=== PATIENT | female | born 1970 | race Hispanic/Latino ===

== ENCOUNTER 2017-11-06 18:24 | Emergency (ER) | payer SELFPAY ==
[~2017-11-06 18:24] MED LIST: LANS30CA53 PO; METO1TAB41 PO
[2017-11-06 18:49] LABS: BILIRUBIN,URINE Negative (NEGATIVE); COLOR,URINE Yellow (YELLOW); GLUCOSE, URINE (UA) Negative (NEGATIVE); KETONES,URINE Negative (NEGATIVE); LEUKOCYTE ESTERASE ,URINE Negative (NEGATIVE); NITRATE,URINE Negative (NEGATIVE); OCCULT BLOOD,URINE Negative (NEGATIVE); PROTEIN,URINE Negative (NEGATIVE); UROBILINOGEN,URINE 0.2 mg/dL (0.2-1.0)
[2017-11-06 18:51] LABS: BASOPHILS % (AUTO) 0.8 % (0.0-5.0); EOSINOPHILS % (AUTO) 5.1 % (0.0-8.0); HEMATOCRIT 37.7 % (36-48); LYMPHOCYTES % (AUTO) 23.3 % (21.0-51.0); MEAN CORPUSCULAR HEMOGLOBIN 31.5 pg (27.0-33.0); MEAN CORPUSCULAR HGB CONC 35.7 g/dL (32.0-36.0); MEAN CORPUSCULAR VOLUME 88.3 fL (79-99); MONOCYTES % (AUTO) 6.6 % (3.0-13.0); NEUTROPHILS % (AUTO) 64.2 % (40.0-77.0); NUCLEATED RED BLOOD CELLS 0.1 % (0.0-0.19); PLATELET COUNT (AUTO) 309 K/uL (130-400); RED BLOOD CELL COUNT(AUTO) 4.27 MIL/uL (4.00-5.50); RED CELL DISTRIBUTION WIDTH 12.4 % (11.0-15.5); WHITE BLOOD COUNT (AUTO) 10.3 K/uL (4.8-10.8)
[2017-11-06 18:53] LABS: APPEARANCE,URINE CLEAR (CLEAR)
[2017-11-06 19:01] LABS: CREATININE 0.9 mg/dL (0.5-1.5); POTASSIUM 3.6 mmol/L (3.5-5.1)
[2017-11-06 19:05] LABS: ALBUMIN 3.4 g/dL (3.5-5.0); BILIRUBIN,TOTAL 0.4 mg/dL (0.2-1.0); TOTAL PROTEIN, SERUM 7.8 g/dL (6.0-8.3)
[2017-11-06] MEDS ORDERED: KETOROLAC TROMETHAMINE 30MG/ML ONE (19:22)
[2017-11-06] MEDS ORDERED: ONDANSETRON HCL MDV 20ML 2 MG/ML VIAL ONE ×2 (19:22→19:23)
[2017-11-06] MEDS ORDERED: SODIUM CHLORIDE 0.9% 1000ML 1,000 ML IV ONE (19:52)
[2017-11-06] MEDS ORDERED: HYDROMORPHONE 1 MG/1 ML AMP ONE (20:49)
== END 2017-11-06 21:47 | disposition home or self-care (01) ==
LOC: EDH 18:24
DX: K80.20 Calculus of gallbladder without cholecystitis without obstruction (principal); R10.31 Right lower quadrant pain; R10.32 Left lower quadrant pain; Z88.1 Allergy status to other antibiotic agents; Z90.710 Acquired absence of both cervix and uterus; Z90.49 Acquired absence of other specified parts of digestive tract
CPT/HCPCS: 36415; 74176; 80053; 81003; 82150; 83690; 84484; 85025; 93005; 96361; 96374; 96375; 99285; J1170; J1885; J7030

== ENCOUNTER 2022-04-09 18:56 | Inpatient (IN) | payer OTHER ==
[~2022-04-09] VITALS: Ht 160 cm; Wt 66.3 kg
[2022-04-09 19:41] LABS: APPEARANCE,URINE CLEAR (CLEAR); BASOPHILS % (AUTO) 0.3 % (0.0-5.0); BILIRUBIN,URINE NEGATIVE (NEGATIVE); COLOR,URINE YELLOW (YELLOW); GLUCOSE, URINE (UA) 100 mg/dL (NEGATIVE); HEMATOCRIT 38.5 % (36-48); KETONES,URINE NEGATIVE (NEGATIVE); LEUKOCYTE ESTERASE ,URINE NEGATIVE (NEGATIVE); LYMPHOCYTES % (AUTO) 10.6 % (21.0-51.0); MEAN CORPUSCULAR HEMOGLOBIN 31.2 pg (27.0-33.0); MEAN CORPUSCULAR HGB CONC 34.8 g/dL (32.0-36.0); MEAN CORPUSCULAR VOLUME 89.5 fL (79-99); MONOCYTES % (AUTO) 5.6 % (3.0-13.0); NEUTROPHILS % (AUTO) 81.2 % (40.0-77.0); NITRATE,URINE NEGATIVE (NEGATIVE); OCCULT BLOOD,URINE TRACE-INTACT (NEGATIVE); PH,URINE 7.5 (5.0-8.0); PLATELET COUNT (AUTO) 299 K/uL (130-400); PROTEIN,URINE NEGATIVE (NEGATIVE); RED CELL DISTRIBUTION WIDTH 11.4 % (11.0-15.5); UROBILINOGEN,URINE 0.2 mg/dL (0.2-1.0); WHITE BLOOD COUNT (AUTO) 17.7 K/uL (4.8-10.8)
[2022-04-09 19:52] LABS: CREATININE 0.6 mg/dL (0.5-1.5); POTASSIUM 3.2 mmol/L (3.5-5.1)
[2022-04-09 19:55] LABS: BACTERIA,URINE Rare /HPF (None Seen); RBC,URINE 0-1 /HPF (0-1); SQUAMOUS EPITHELIAL CELL,UR Rare /HPF (0-2); WBC,URINE 0-1 /HPF (0-1)
[2022-04-09 20:02] LABS: TOTAL PROTEIN, SERUM 8.3 g/dL (6.0-8.3)
[2022-04-09] MEDS ORDERED: ONDANSETRON 4MG INJ ONE (21:08)
[2022-04-09] MEDS ORDERED: PANTOPRAZOLE 40 MG/VIAL ONE (21:08)
[2022-04-09] MEDS ORDERED: PANTOPRAZOLE 40 MG/VIAL IVP ONE (21:30)
[2022-04-09] MEDS ORDERED: ONDANSETRON 4MG INJ IVP ONE (21:30)
[2022-04-09] MEDS ORDERED: ZOSYN 3.375GM+NS 50ML 50 ML ONE (22:52)
[2022-04-09] MEDS ORDERED: ZOSYN 3.375GM +NS 50ML IV ONE (23:00)
[2022-04-10] MEDS: LACTATED RINGERS 1000ML 1,000 ML IV SCH
[2022-04-10] MEDS ORDERED: MORPHINE 2 MG SYG IV PRN
[2022-04-10 00:30] VITALS: BP 140/82
[2022-04-10] MEDS ORDERED: MORPHINE 4 MG SYG IV PRN ×2 (00:30)
[2022-04-10 04:00] VITALS: BP 109/66
[2022-04-10] MEDS ORDERED: POTASSIUM CHLORIDE 20MEQ/100ML 100 ML IV PRN (04:00)
[2022-04-10] MEDS ORDERED: LIDOCAINE HCL-MPF 1% 2ML VIAL IV PRN (04:00)
[2022-04-10] MEDS ORDERED: HYDROMORPHONE 0.5 MG SYG (0.5MG/0.5ML) IVP PRN (04:00)
[2022-04-10 04:37] LABS: BASOPHILS % (AUTO) 0.5 % (0.0-5.0); EOSINOPHILS % (AUTO) 4.1 % (0.0-8.0); HEMATOCRIT 36.1 % (36-48); MEAN CORPUSCULAR HEMOGLOBIN 30.7 pg (27.0-33.0); MEAN CORPUSCULAR HGB CONC 34.1 g/dL (32.0-36.0); MONOCYTES % (AUTO) 5.7 % (3.0-13.0); NEUTROPHILS % (AUTO) 66.3 % (40.0-77.0); PLATELET COUNT (AUTO) 287 K/uL (130-400); RED BLOOD CELL COUNT(AUTO) 4.01 MIL/uL (4.00-5.50); RED CELL DISTRIBUTION WIDTH 11.3 % (11.0-15.5); WHITE BLOOD COUNT (AUTO) 10.9 K/uL (4.8-10.8)
[2022-04-10 04:49] LABS: CREATININE 0.5 mg/dL (0.5-1.5); MAGNESIUM 2.1 mg/dL (1.80-2.40); PHOSPHORUS 3.9 mg/dL (2.5-4.9); POTASSIUM 3.5 mmol/L (3.5-5.1)
[2022-04-10 06:18] LABS: INR 0.94 (0.85-1.15); PROTHROMBIN TIME 10.3 SEC (9.6-11.6)
[2022-04-10 06:20] LABS: PARTIAL THROMBOPLASTIN TIME 26.9 SEC (26.3-35.5)
[2022-04-10 08:00] VITALS: BP 97/53
[2022-04-10] MEDS: FAMOTIDINE 20MG VIAL IV SCH (08:11)
[2022-04-10] MEDS ORDERED: FAMOTIDINE 20MG VIAL IV SCH (09:00)
[2022-04-10 12:00] VITALS: BP 119/58
[2022-04-10] MEDS ORDERED: DIATR MEGLU/DIATRIZOATE SODIUM 30 ML BOTTLE ONE (12:32)
[2022-04-10] MEDS: ZOSYN 3.375GM +NS 50ML IV SCH ×2 (13:00→19:24)
[2022-04-10] MEDS: ACETAMINOPHEN 325 MG TAB PO PRN (14:22)
[2022-04-10] MEDS: ONDANSETRON 4MG INJ IV PRN (14:25)
[2022-04-10 16:00] VITALS: BP 126/66
[2022-04-10 20:00] VITALS: BP 136/83
[2022-04-11] VITALS (23 sets, daily range): BP systolic 86–138; BP diastolic 37–78
[2022-04-11] MEDS: LACTATED RINGERS 1000ML 1,000 ML IV SCH ×2 (02:40→16:21)
[2022-04-11] MEDS: ZOSYN 3.375GM +NS 50ML IV SCH ×3 (04:17→20:45)
[2022-04-11] MEDS: ACETAMINOPHEN 325 MG TAB PO PRN (04:18)
[2022-04-11] MEDS ORDERED: KETOROLAC 30MG VIAL (30MG/ML) IVP STA (05:32)
[2022-04-11] MEDS ORDERED: KETOROLAC 30MG VIAL (30MG/ML) ONE ×2 (05:38→15:10)
[2022-04-11 05:39] LABS: HEMATOCRIT 34.1 % (36-48); MEAN CORPUSCULAR HEMOGLOBIN 30.3 pg (27.0-33.0); MEAN CORPUSCULAR HGB CONC 33.4 g/dL (32.0-36.0); MEAN CORPUSCULAR VOLUME 90.7 fL (79-99); RED BLOOD CELL COUNT(AUTO) 3.76 MIL/uL (4.00-5.50); RED CELL DISTRIBUTION WIDTH 11.5 % (11.0-15.5); WHITE BLOOD COUNT (AUTO) 7.1 K/uL (4.8-10.8)
[2022-04-11 05:48] LABS: ALBUMIN 3.4 g/dL (3.5-5.0); CREATININE 0.6 mg/dL (0.5-1.5); POTASSIUM 3.3 mmol/L (3.5-5.1); TOTAL PROTEIN, SERUM 6.9 g/dL (6.0-8.3)
[2022-04-11] MEDS: FAMOTIDINE 20MG VIAL IV SCH (07:51)
[2022-04-11] MEDS ORDERED: LIDOCAINE HCL MPF 1% 5ML VIAL ONE (12:07)
[2022-04-11] MEDS ORDERED: PROPOFOL 10 MG/ML 20ML VIAL IV ONE (12:10)
[2022-04-11] MEDS ORDERED: LIDOCAINE HCL 1% 20 ML VIAL ONE (12:10)
[2022-04-11] MEDS ORDERED: MIDAZOLAM HCL 1 MG/ML 2ML VIAL ONE (12:10)
[2022-04-11] MEDS ORDERED: BUPIVACAINE/EPI/PF 0.25% 10ML VIAL IJ ONE (12:11)
[2022-04-11] MEDS ORDERED: FENTANYL CITRATE PF 50 MCG/1 ML 2ML VIAL ONE (12:11)
[2022-04-11] MEDS ORDERED: LIDOCAINE PF 100MG/5ML (2%) SYRINGE 5ML ONE (12:11)
[2022-04-11] MEDS ORDERED: DEXAMETHASONE SOD PHOSPHATE 4 MG/ML 1ML VIAL ONE (12:17)
[2022-04-11] MEDS ORDERED: ONDANSETRON 4MG INJ ONE (12:18)
[2022-04-11] MEDS ORDERED: ROCURONIUM 10MG/1ML SYR 10 MG/ML ML ONE (12:33)
[2022-04-11] MEDS ORDERED: PHENYLEPHRINE HCL 10 MG/ML 1ML VIAL IV ONE (13:11)
[2022-04-11] MEDS ORDERED: GLYCOPYRROLATE 1 MG/5 ML SYRINGE ONE (13:45)
[2022-04-11] MEDS ORDERED: MEPERIDINE-PF 25 MG/ML SYG ONE (14:47)
[2022-04-11] MEDS: ONDANSETRON 4MG INJ IV PRN (14:51)
[2022-04-11] MEDS: OXYCODONE/ACETAMIN 5/325MG TAB PO PRN ×2 (16:21→21:54)
[2022-04-12] VITALS: BP 106/58
[2022-04-12] MEDS ORDERED: POTASSIUM CHLORIDE 10% ELIXIR 20 MEQ/15 ML UDCUP PO PRN (03:00)
[2022-04-12] MEDS: ZOSYN 3.375GM +NS 50ML IV SCH ×2 (03:29→14:32)
[2022-04-12] MEDS: OXYCODONE/ACETAMIN 5/325MG TAB PO PRN ×2 (03:30→17:57)
[2022-04-12 03:44] LABS: HEMATOCRIT 35.5 % (36-48); MEAN CORPUSCULAR HEMOGLOBIN 30.8 pg (27.0-33.0); MEAN CORPUSCULAR HGB CONC 34.1 g/dL (32.0-36.0); MEAN CORPUSCULAR VOLUME 90.3 fL (79-99); RED BLOOD CELL COUNT(AUTO) 3.93 MIL/uL (4.00-5.50); RED CELL DISTRIBUTION WIDTH 11.1 % (11.0-15.5); WHITE BLOOD COUNT (AUTO) 11.2 K/uL (4.8-10.8)
[2022-04-12 04:00] VITALS: BP 114/71
[2022-04-12 04:35] LABS: ALBUMIN 3.3 g/dL (3.5-5.0); CREATININE 0.6 mg/dL (0.5-1.5); POTASSIUM 3.5 mmol/L (3.5-5.1); TOTAL PROTEIN, SERUM 7.1 g/dL (6.0-8.3)
[2022-04-12] MEDS: LACTATED RINGERS 1000ML 1,000 ML IV SCH ×2 (04:36→14:33)
[2022-04-12] MEDS: KCL 20 MEQ ERTAB PO PRN ×2 (05:21→08:54)
[2022-04-12 08:36] VITALS: BP 110/73
[2022-04-12] MEDS: FAMOTIDINE 20MG VIAL IV SCH (08:52)
[2022-04-12] MEDS: ONDANSETRON 4MG INJ IV PRN (08:54)
[2022-04-12 12:27] VITALS: BP 117/71
[2022-04-12 16:00] VITALS: BP 120/62
== END 2022-04-12 18:31 | disposition home or self-care (01) | DRG 419 ==
LOC: EDH 18:56 → EDHIP 18:57 → 4AH 04-10 00:25
PROVIDERS: ADMIT Hospitalist; ATTEND Hospitalist
PROC: 8E0W4CZ Robotic Assisted Procedure of Trunk Region, Percutaneous Endoscopic Approach (ICD-10-PCS; 2022-04-11)
PROC: 0FT44ZZ Resection of Gallbladder, Percutaneous Endoscopic Approach (ICD-10-PCS; principal; 2022-04-11 08:00)
DX: K80.00 Calculus of gallbladder with acute cholecystitis without obstruction (principal); Z20.822 Contact with and (suspected) exposure to COVID-19; E87.6 Hypokalemia; Z90.710 Acquired absence of both cervix and uterus; Z88.5 Allergy status to narcotic agent; Z88.8 Allergy status to other drugs, medicaments and biological substances
CPT/HCPCS: 36415; 71045; 71260; 74160; 76705; 80048; 80053; 81001; 82550; 83605; 83690; 83735; 84100; 84484; 85025; 85027; 85610; 85730; 86850; 86900; 86901; 87040; 87635; 93005; C9113; C9803; G0378; J1100; J1170; J1885; J2001; J2175; J2250; J2370; J2405; J2543; J2704; J3010; J3490; J7120; Q9963

== ENCOUNTER 2023-04-17 09:34 | Emergency (ER) | payer OTHER, SELFPAY ==
[~2023-04-17] VITALS: Ht 160 cm; Wt 61.2 kg
[2023-04-17 09:35] VITALS: BP 142/78; PULSE 85; RESP 24
[2023-04-17 10:00] LABS: BASOPHILS # (AUTO) 0.05 K/uL (0.00-0.20); BASOPHILS % (AUTO) 0.6 % (0.0-5.0); EOSINOPHILS # (AUTO) 0.37 K/uL (0.00-0.70); EOSINOPHILS % (AUTO) 4.5 % (0.0-8.0); HEMATOCRIT 44.4 % (36-48); IMMATURE GRANULOCYTE ABSOLUTE 0.02 K/uL (0-1); LYMPHOCYTES # (AUTO) 2.8 K/uL (1.0-4.8); LYMPHOCYTES % (AUTO) 34.3 % (21.0-51.0); MEAN CORPUSCULAR HEMOGLOBIN 30.7 pg (27.0-33.0); MEAN CORPUSCULAR HGB CONC 34.7 g/dL (32.0-36.0); MEAN CORPUSCULAR VOLUME 88.6 fL (79-99); MONOCYTES # (AUTO) 0.5 K/uL (0.1-1.0); MONOCYTES % (AUTO) 6.4 % (3.0-13.0); NEUTROPHILS # (AUTO) 4.5 K/uL (1.8-7.7); PLATELET COUNT (AUTO) 350 K/uL (130-400); RED BLOOD CELL COUNT(AUTO) 5.01 MIL/uL (4.00-5.50); WHITE BLOOD COUNT (AUTO) 8.3 K/uL (4.8-10.8)
[2023-04-17] MEDS ORDERED: LACTATED RINGERS 1000ML 1,000 ML IV ONE (10:00)
[2023-04-17] MEDS ORDERED: ONDANSETRON 4MG INJ IVP ONE (10:00)
[2023-04-17] MEDS ORDERED: KETOROLAC 15MG/ML VIAL (15MG/ML) IV ONE (10:00)
[2023-04-17] MEDS ORDERED: PANTOPRAZOLE 40 MG/VIAL IVP ONE (10:00)
[2023-04-17 10:14] LABS: CREATININE 0.6 mg/dL (0.5-1.5); POTASSIUM 3.1 mmol/L (3.5-5.1)
[2023-04-17 10:24] LABS: ALBUMIN 4.6 g/dL (3.5-5.0); BILIRUBIN,TOTAL 0.9 mg/dL (0.2-1.0); TOTAL PROTEIN, SERUM 9.1 g/dL (6.0-8.3)
[2023-04-17] MEDS ORDERED: IOHEXOL-350 75 ML VIAL IV ONE (10:55)
[2023-04-17 11:44] LABS: APPEARANCE,URINE CLEAR (CLEAR); BILIRUBIN,URINE NEGATIVE (NEGATIVE); GLUCOSE, URINE (UA) NEGATIVE (NEGATIVE); KETONES,URINE 10 mg/dL (NEGATIVE); LEUKOCYTE ESTERASE ,URINE NEGATIVE Leu/uL (NEGATIVE); NITRATE,URINE NEGATIVE (NEGATIVE); OCCULT BLOOD,URINE NEGATIVE (NEGATIVE); PROTEIN,URINE NEGATIVE (NEGATIVE); UROBILINOGEN,URINE 0.2 mg/dL (0.2-1.0)
[2023-04-17 11:45] LABS: ADD UA MICROSCOPIC YES; COLOR,URINE LIGHT-YELLOW (YELLOW); RBC,URINE 0-1 /HPF (0-1); WBC,URINE 0-1 /HPF (0-1)
[2023-04-17] MEDS ORDERED: IBUP-2070 PO (12:59)
[2023-04-17] MEDS ORDERED: DOCU-116 PO (12:59)
[2023-04-17] MEDS ORDERED: LACTULOSE 20 GM/30 ML UDCUP PO ONE (13:00)
[2023-04-17] MEDS ORDERED: KCL 20 MEQ ERTAB PO ONE (13:00)
== END 2023-04-17 13:37 | disposition home or self-care (01) ==
LOC: EDH 09:34
DX: K59.01 Slow transit constipation (principal); R10.9 Unspecified abdominal pain; F41.9 Anxiety disorder, unspecified; Z88.5 Allergy status to narcotic agent; Z88.8 Allergy status to other drugs, medicaments and biological substances
CPT/HCPCS: 99285; 74178; 96374; 96375; 96361; 84484; 80053; 84703; 84702; 83690; 85025; 81001; 36415; 93005; J7120; J2405; C9113; J1885; Q9967

== ENCOUNTER 2024-07-16 00:13 | Emergency (ER) | payer BC, SELFPAY ==
[~2024-07-16] VITALS: Ht 157.5 cm; Wt 72.6 kg
[~2024-07-16 00:13] MED LIST changes: +DOCU-116 PO; +IBUP-2070 PO; -LANS30CA53 PO; -METO1TAB41 PO
[2024-07-16 00:51] LABS: BASOPHILS # (AUTO) 0.07 K/uL (0.00-0.20); BASOPHILS % (AUTO) 0.5 % (0.0-5.0); EOSINOPHILS # (AUTO) 0.28 K/uL (0.00-0.70); EOSINOPHILS % (AUTO) 2.1 % (0.0-8.0); HEMATOCRIT 39.7 % (36-48); IMMATURE GRANULOCYTE ABSOLUTE 0.06 K/uL (0-1); LYMPHOCYTES # (AUTO) 2.3 K/uL (1.0-4.8); LYMPHOCYTES % (AUTO) 17.1 % (21.0-51.0); MEAN CORPUSCULAR HEMOGLOBIN 31.1 pg (27.0-33.0); MEAN CORPUSCULAR HGB CONC 34.5 g/dL (32.0-36.0); MONOCYTES # (AUTO) 0.5 K/uL (0.1-1.0); NEUTROPHILS # (AUTO) 10.3 K/uL (1.8-7.7); NEUTROPHILS % (AUTO) 75.9 % (40.0-77.0); PLATELET COUNT (AUTO) 348 K/uL (130-400); RED BLOOD CELL COUNT(AUTO) 4.41 MIL/uL (4.00-5.50); RED CELL DISTRIBUTION WIDTH 11.7 % (11.0-15.5); WHITE BLOOD COUNT (AUTO) 13.6 K/uL (4.8-10.8)
[2024-07-16 01:02] LABS: CREATININE 0.8 mg/dL (0.5-1.0); POTASSIUM 3.7 mmol/L (3.5-5.1)
[2024-07-16] MEDS: 0.9%NACL 1000ML 1,000 ML IV ONE (01:02)
[2024-07-16] MEDS: ondanSETRON 4MG INJ IVP ONE (01:02)
[2024-07-16] MEDS: PANTOPrazole 40 MG/VIAL IVP ONE (01:02)
--- NOTE | 2024-07-16 01:06 | ERN ---
ED Note History of Present Illness Stated Complaint: ABD PAIN Chief Complaint: Abdominal Pain Time Seen by MD: 00:17 Time Seen by Midlevel: 00:17 Dictation: The patient is a 54-year-old female with a history of cholecystectomy, hysterectomy, appendectomy, abdominal hernia who presents to the emergency department with complaints of periumbilical, left abdominal pain associated with nausea onset 10:30 p.m.. Patient reports bowel movement today. Denies any constipation or vomiting. Denies any fevers. Allergies: Coded Allergies: gentamicin (Verified Allergy, Unknown, 03/30/17) morphine (Verified Allergy, Unknown, 03/30/17) Home Meds Active Scripts Docusate Sodium (Colace) 100 Mg Capsule, 100 MG PO TID for constipation, #30 CAP 0 Refills Take with 16 oz water each dose as needed for constipation Prov:NEMESIO ROSS 04/17/23 Ibuprofen (Ibuprofen) 600 Mg Tablet, 600 MG PO Q6H PRN for PAIN, #15 TAB Prov:NEMESIO ROSS 04/17/23 Past Medical History Past Medical History: Other Additional Past Medical Hx: CHRONIC ABDOMINAL PAIN Surgical History: None Social History: Lives with family RN Note Reviewed/Agreed w/PFSH: Yes Review of System Dictation Constitutional: Negative for fever,chills, and weight loss Eyes: Negative for injury, pain,redness, and discharge ENT: Negative for injury,pain or swelling Cardiovascular: Negative for chest pain, palpitations, and edema Respiratory: Negative for shortness of breath, cough, and wheezing, Abdomen/GI: Negative for, vomiting, diarrhea, and constipation positive for abdominal pain, nausea Back: Negative for injury and pain : Negative for injury, bleeding and discharge MS/Extremity: Negative for injury and deformity Skin: Negative for rash, and discoloration Neuro: Negative for headache, weakness, numbness, tingling, and seizure Psych: Negative for suicide ideation, homicidal ideation, and hallucinations Initial Vital Sign VS Vital Signs Date Time Temp Pulse Resp B/P (MAP) Pulse Ox O2 Delivery O2 Flow Rate FiO2 07/16/24 00:24 97.7 84 17 131/59 100 Room Air 0 07/16/24 01:26 21 Physical Exam Dictation Vital Signs reviewed General Appearance: Alert, oriented x 3, no acute distress, well developed, nourished. Head and Face: non-traumatic. Eyes: PERRL, pink conjunctivas, eyelid no trauma, anterior chamber with arcus senilis. Ears: Pinnas intact and no signs of trauma or erythema ear canals clear and no discharge TM no erythema Nose: No discharge, no bleeding. Oropharynx: Mouth normal, tongue pink. pharynx clear,no erythema, tonsils no exudates, no abscesses noted, mucous membrane moist Neck: Supple, non-tender, no thyromegaly, no masses, no JVD, no bruits Breast:Deferred Chest:No tenderness, no crepitus, no paradoxical movement, no retractions Lungs:Clear, well-ventilated, symmetric, no rales, no wheezing, no rhonchi, no stridor, good breath sounds bilaterally Heart: Regular rate, regular rhythm, no murmur, no gallops Vascular: no peripheral edema, Abdomen: Soft, positive bowel sounds, nondistended, no guarding, Tender to periumbilical area, tender to left upper, lower quadrant no rebound, no masses no hepatomegaly, no splenomegaly, no Livingston's sign, no hernias. Rectal: Deferred Genital: Deferred Neurological: Normal speech, motor function intact, sensory function intact Musculoskeletal: Neck nontender, full range of motion, back nontender, full range of motion, Extremities: nontender, full range of motion Skin: Color pink, dry, no turgor, no rash, no lacerations, no abrasions, no contusions. Lymphatic: Deferred Results (Laboratory/Radiology) Laboratory/Radiology Laboratory Tests Test 07/16/24 00:24 07/16/24 01:16 White Blood Count 13.6 K/uL (4.8-10.8) H Red Blood Count 4.41 MIL/uL (4.00-5.50) Hemoglobin 13.7 g/dL (12.0-16.0) Hematocrit 39.7 % (36-48) Mean Corpuscular Volume 90.0 fL (79-99) Mean Corpuscular Hemoglobin 31.1 pg (27.0-33.0) Mean Corpuscular Hemoglobin Concent 34.5 g/dL (32.0-36.0) Red Cell Distribution Width 11.7 % (11.0-15.5) Platelet Count 348 K/uL (130-400) Mean Platelet Volume 9.8 fL (7.5-10.5) Immature Granulocyte % (Auto) 0.4 % (0-1) Neutrophils (%) (Auto) 75.9 % (40.0-77.0) Lymphocytes (%) (Auto) 17.1 % (21.0-51.0) L Monocytes (%) (Auto) 4.0 % (3.0-13.0) Eosinophils (%) (Auto) 2.1 % (0.0-8.0) Basophils (%) (Auto) 0.5 % (0.0-5.0) Neutrophils # (Auto) 10.3 K/uL (1.8-7.7) H Lymphocytes # (Auto) 2.3 K/uL (1.0-4.8) Monocytes # (Auto) 0.5 K/uL (0.1-1.0) Eosinophils # (Auto) 0.28 K/uL (0.00-0.70) Basophils # (Auto) 0.07 K/uL (0.00-0.20) Absolute Immature Granulocyte (auto 0.06 K/uL (0-1) Nucleated Red Blood Cells 0.0 % (0.0-0.19) Sodium Level 142 mmol/L (136-145) Potassium Level 3.7 mmol/L (3.5-5.1) Chloride Level 104 mmol/L (101-111) Carbon Dioxide Level 28 mmol/L (21-32) Blood Urea Nitrogen 15 mg/dL (7-18) Creatinine 0.8 mg/dL (0.5-1.0) Glomerular Filtration Rate Calc 87 mL/min (>90) Random Glucose 183 mg/dL (70-105) H Total Calcium 9.4 mg/dL (8.5-10.1) Total Bilirubin 0.5 mg/dL (0.2-1.0) Direct Bilirubin 0.1 mg/dL (0.0-0.3) Aspartate Amino Transf (AST/SGOT) 28 U/L (10-37) Alanine Aminotransferase (ALT/SGPT) 43 U/L (12-78) Alkaline Phosphatase 102 U/L (50-136) Troponin I High Sensitivity 10 ng/L (4-50) Total Protein 7.6 g/dL (6.0-8.3) Albumin 3.9 g/dL (3.5-5.0) Lipase 60 U/L (16-77) Urine Color YELLOW (YELLOW) Urine Appearance CLOUDY (CLEAR) H Urine pH 7.5 (5.0-8.0) Urine Specific Lindsay 1.016 (1.001-1.031) Urine Protein NEGATIVE mg/dL (NEGATIVE) Urine Glucose (UA) 50 mg/dL (NEGATIVE) H Urine Ketones 20 mg/dL (NEGATIVE) H Urine Occult Blood NEGATIVE (NEGATIVE) Urine Nitrate NEGATIVE (NEGATIVE) Urine Bilirubin NEGATIVE mg/dL (NEGATIVE) Urine Urobilinogen 0.2 mg/dL (0.2-1.0) Urine Leukocyte Esterase NEGATIVE Nyla/uL Urine RBC 2-5 /HPF (0-1) H Urine WBC 2-5 /HPF (0-1) H Urine Amorphous Crystals (Auto) FEW /LPF (None Seen) Urine Bacteria None /HPF (None Seen) Labs Reviewed?: Yes ED Course ED Course Orders Procedure Category Date Status Time Cbc With Differential LAB 07/16/24 Complete 00:39 Troponin I High LAB 07/16/24 Complete Sensitivity 00:39 Urinalysis Profile LAB 07/16/24 Complete 00:39 12 Lead Ekg Tracing- EKG 07/16/24 Logged Technical 00:39 0.9%Nacl 1000ml (Ns PHA 07/16/24 Complete 1000ml) 01:00 Ondansetron 4mg Inj PHA 07/16/24 Complete (Zofran 4mg Inj) 01:00 Pantoprazole 40mg Inj PHA 07/16/24 Complete (Protonix 40mg Inj 01:00 Lipase LAB 07/16/24 Complete 00:39 Basic Metabolic Panel LAB 07/16/24 Complete 00:39 Hepatic Function Panel LAB 07/16/24 Complete 00:39 Ct Abdomen/Pelvis CT 07/16/24 Taken W/Contrast 00:39 Iohexol (Omnipaque) PHA 07/16/24 Complete 02:01 Current Medications Medications (Trade) Dose Ordered Sig/Emelia Route PRN Reason Start Time Stop Time Status Last Admin Dose Admin Iohexol (Omnipaque) 35,000 mg STK-MED ONCE IV 07/16/24 02:01 07/16/24 02:06 DC Ondansetron HCl (zoFRAN 4MG INJ) 4 mg ONCE ONCE IVP 07/16/24 01:00 07/16/24 01:01 DC 07/16/24 01:02 Pantoprazole Sodium (PROTonix 40MG INJ) 40 mg ONCE ONCE IVP 07/16/24 01:00 07/16/24 01:01 DC 07/16/24 01:02 Sodium Chloride 1,000 ml @ 0 mls/hr ONCE ONCE IV 07/16/24 01:00 07/16/24 01:01 DC 07/16/24 01:02 Vital Signs Date Time Temp Pulse Resp B/P (MAP) Pulse Ox O2 Delivery O2 Flow Rate FiO2 07/16/24 05:30 74 16 108/72 100 Room Air* 0 21 07/16/24 01:26 97.9 77 18 110/65 100 Room Air* 0 21 07/16/24 00:24 97.7 84 17 131/59 100 Room Air 0 Medical Decision Making MDM The patient is a 54-year-old female with a history of cholecystectomy, hysterectomy, appendectomy, abdominal hernia who presents to the emergency department with complaints of periumbilical, left abdominal pain associated with nausea onset 10:30 p.m.. Patient reports bowel movement today. Denies any constipation or vomiting. Denies any fevers. Abdominal pain Abdominal hernia GERD associated with the abdominal hernia Patient received pain medication prescribed by the nurse practitioner under my supervision with good improvement of her symptoms. CT scan show a 8.8 cm mid left ventral hernia containing nonobstructed small bowel. Findings discussed with the patient at bedside. Patient said that she will follow up with the surgeon as outpatient. DX & DISP Disposition: Discharge Departure Impression: Primary Impression: Acute abdominal pain Additional Impressions: Ventral hernia, Ventral hernia without obstruction or gangrene Condition: Stable Additional Instructions: RETURN TO ER FOR ANY ACUTE OR WORSENING SYMPTOMS. FOLLOW-UP IN 1-2 DAYS WITH PRIMARY PROVIDER FOR RECHECK OF TODAY'S SYMPTOMS. Referrals: SELF,REFERRAL (PCP) JOSEPH CUELLAR Jul 16, 2024 01:06 ZHENG RODRIGUEZ MD Jul 16, 2024 05:49
[2024-07-16 01:07] LABS: ALBUMIN 3.9 g/dL (3.5-5.0); BILIRUBIN,DIRECT 0.1 mg/dL (0.0-0.3); BILIRUBIN,TOTAL 0.5 mg/dL (0.2-1.0); TOTAL PROTEIN, SERUM 7.6 g/dL (6.0-8.3)
[2024-07-16 01:25] LABS: APPEARANCE,URINE CLOUDY (CLEAR); BILIRUBIN,URINE NEGATIVE (NEGATIVE); COLOR,URINE YELLOW (YELLOW); GLUCOSE, URINE (UA) 50 mg/dL (NEGATIVE); KETONES,URINE 20 mg/dL (NEGATIVE); LEUKOCYTE ESTERASE ,URINE NEGATIVE Leu/uL (NEGATIVE); NITRATE,URINE NEGATIVE (NEGATIVE); OCCULT BLOOD,URINE NEGATIVE (NEGATIVE); PH,URINE 7.5 (5.0-8.0); PROTEIN,URINE NEGATIVE (NEGATIVE); UROBILINOGEN,URINE 0.2 mg/dL (0.2-1.0)
[2024-07-16 01:26] VITALS: TEMP 97.8
[2024-07-16 01:28] LABS: ADD UA MICROSCOPIC YES
[2024-07-16] MEDS ORDERED: IOHEXOL 350 MG/ML 100ML INFUS..BTL IV ONE (02:01)
[2024-07-16 05:30] VITALS: BP 108/72; PULSE 74; RESP 16; O2SAT 100
--- NOTE | 2024-07-16 06:26 | EKG ---
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
--- NOTE | 2024-07-16 08:31 | HMCIMG ---
CT ABDOMEN/PELVIS W/CONTRAST REASON: left side abd pain, hx abd hernia COMPARISON: 04/17/2023 TECHNIQUE: Images are obtained from lung bases through the symphysis pubis following IV contrast, 100 cc Isovue-[id number]. FINDINGS: Lung bases are clear. There are cysts in the liver, largest in the left lobe measuring 4.3 cm. There are several additional subcentimeter cysts as well There are normal-appearing kidneys.. Spleen and pancreas appear unremarkable. There has been a previous cholecystectomy. There is ventral hernia to the left of midline just above the umbilicus. Opening is 2.1 cm, hernia sac is approximately 8 cm. This does contain a loop of bowel but the bowel loops within the hernia sac and proximal to the hernia sac do not appear distended. Bowel loops appear otherwise unremarkable. There has been a previous appendectomy There is no evidence of free fluid or intraperitoneal air. There are no focal fluid collections. Aorta and retroperitoneum appear normal as do pelvic soft tissue structures. The anterior abdominal wall is intact. Osseous structures appear unremarkable. IMPRESSION: 1. Ventral hernia just to the left of midline, just above the umbilicus, this contains a loop of nondistended small bowel. 2. Otherwise unremarkable postcontrast CT abdomen and pelvis. CT was performed with one or more following dose reduction techniques: automated exposure control, adjustment of the mA and kv according to patient's size, or use of a iterative reconstruction technique.
--- NOTE | 2024-07-16 09:59 | EKG ---
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
== END 2024-07-16 06:06 | disposition home or self-care (01) ==
LOC: EDH 00:13
DX: K43.9 Ventral hernia without obstruction or gangrene (principal); R10.9 Unspecified abdominal pain; Z88.5 Allergy status to narcotic agent
CPT/HCPCS: 99284; 74177; 96374; 96361; 96375; 80076; 84484; 80048; 83690; 85025; 81001; 36415; 93005 ×2; J7030; J2405; J2470; Q9967